=== PATIENT | female | born 1980 | race Native Hawaiian/Other Pacific Islander ===

== ENCOUNTER 2020-10-21 00:38 | Emergency (ER) | payer SELFPAY ==
[~2020-10-21] VITALS: Ht 172.7 cm; Wt 79.4 kg
[2020-10-21 00:59] VITALS: BP 146/67
== END 2020-10-21 02:53 | disposition left against medical advice (07) ==
LOC: ER 00:38
DX: N89.8 Other specified noninflammatory disorders of vagina (principal); Z53.21 Procedure and treatment not carried out due to patient leaving prior to being seen by health care provider